=== PATIENT | female | born 1970 | race Caucasian/White ===

== ENCOUNTER 2019-01-31 20:34 | Emergency (ER) | payer OTHER ==
[~2019-01-31] VITALS: Ht 157.5 cm; Wt 72.6 kg
[2019-02-01] MEDS ORDERED: PEPCID40 MG PO ×2 (00:55→00:56)
[2019-02-01] MEDS ORDERED: ZOFRAN4 MG PO (00:56)
== END 2019-02-01 01:04 | disposition home or self-care (01) ==
LOC: ER 20:34
DX: K29.60 Other gastritis without bleeding (principal)